=== PATIENT | female | born 2000 | race Caucasian/White ===

== ENCOUNTER 2020-09-23 16:12 | Outpatient (CLI) | payer OTHER, SELFPAY ==
--- NOTE | ~2020-09-23 | XR_ITS ---
XR_[id number]_CR DATE: 09/23/2020 16:55 INDICATION: Neck pain TECHNIQUE: AP, open-mouth, lateral, swimmer views COMPARISON: None FINDINGS: No fracture or dislocation or locked facet or prevertebral soft tissue swelling. Cervical i nterspaces are preserved. IMPRESSION: Negative Reviewed, dictated and finalized at [facility]. Reviewed, dictated and finalized at [facility]. IMPRESSION: Negative
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
== END 2020-09-23 16:13 ==
PROVIDERS: Visit Provider Chiropractor
DX: M99.02 Segmental and somatic dysfunction of thoracic region (principal); M99.01 Segmental and somatic dysfunction of cervical region
CPT/HCPCS: 72040; 72070